=== PATIENT | female | born 1960 | race Caucasian/White ===

== ENCOUNTER 2022-04-13 09:49 | Emergency (ER) | payer MEDICAID ==
[~2022-04-13] VITALS: Ht 162.6 cm; Wt 68.0 kg
--- NOTE | 2022-04-13 10:03 | NUR ---
Patient arrived to ED 5 for c/o slip and fall, stumble and hit right knee. Patient was taking out the trash yesterday 11 pm and she accidentally stumbled in the rain. Patient took two tylenols yesterday and one ibuprofen this morning. Patient has right knee pain. Report given to ALBAN Escobar for continuity of care.
[2022-04-13 10:06] VITALS: BP_SYST 155
--- NOTE | 2022-04-13 10:10 | NUR ---
ER at bedside examining patient.
[2022-04-13] MEDS ORDERED: ACETAMINOPHEN 500 MG TABLET PO ONE (10:15)
[2022-04-13] MEDS ORDERED: KETOROLAC TROMETHAMINE 60 MG/2 ML VIAL IM ONE (10:15)
--- NOTE | 2022-04-13 10:26 | NUR ---
PT WAS MEDICATED PER MD ORDER FOR THE PAIN.
[2022-04-13] MEDS ORDERED: ACET-2634 PO (10:59)
[2022-04-13] MEDS ORDERED: IBUP-1969 PO (10:59)
[2022-04-13 11:17] VITALS: BP_SYST 128
--- NOTE | 2022-04-13 11:19 | NUR ---
Patient given written and verbal discharge instructions and verbalizes understanding. ER MD discussed with patient the results and treatment provided. Patient in stable condition. ID arm band removed. IV catheter removed intact and dressing applied, no active bleeding. Rx of Ibuprofen, Tylenol given. Patient educated on pain management and to follow up with PMD. Pain Scale . Opportunity for questions provided and answered. Medication side effect fact sheet provided.
== END 2022-04-13 11:19 | disposition home or self-care (01) ==
LOC: SED 09:49
DX: S80.01XA Contusion of right knee, initial encounter (principal); R03.0 Elevated blood-pressure reading, without diagnosis of hypertension; Z79.899 Other long term (current) drug therapy; W00.0XXA Fall on same level due to ice and snow, initial encounter; Y93.89 Activity, other specified; Y92.89 Other specified places as the place of occurrence of the external cause; Y99.8 Other external cause status
CPT/HCPCS: 99283; 96372; J1885